=== PATIENT | female | born 1945 | race Caucasian/White ===

== ENCOUNTER 2023-10-22 07:57 | Day surgery (SDC) | payer OTHER ==
[2023-10-16 16:09] LABS: Absolute Basophils 0.1 K/uL (0-0.5); Absolute Eosinophils 0.5 K/uL (0-0.5); Absolute Lymphocytes (CBC) 2.4 K/uL (0.7-4.9); Absolute Monocytes 0.8 K/uL (0.1-1.3); Absolute Neutrophil 6.2 K/uL (1.8-8.0); Basophils % 1.2 % (0-1.3); Eosinophils % 5.4 % (0-4.4); Hematocrit 40.9 % (36.0-45.0); Hemoglobin 13.6 g/dL (12.0-15.0); Lymphocytes % 23.6 % (15.3-44.8); MCH 28.1 pg (27.0-35.0); MCHC 33.3 g/dL (32.0-36.0); MCV 84.5 fL (80-100); MPV 9.1 fL (7.6-11.3); Neutrophils % 61.8 % (41.7-73.7); Nucleated Red Blood Cells % 0.1 % (0-0); Platelets 282 thou/uL (152-406); RBC Red Blood Cell Count 4.84 M/uL (3.86-4.86); Red Cell Distribution Width 17.1 % (12.1-15.2)
[2023-10-16 16:29] LABS: Anion Gap 8.6 mEq/L (5.0-15.0); Potassium 3.6 mEq/L (3.5-5.1)
[2023-10-22] MEDS: NA CHLORIDE 0.9% 1,000 ML ONE (08:30)
[2023-10-22] MEDS: SCOPOLAMINE HYDROBROMIDE PATCH TD ONE (08:38)
[2023-10-22] MEDS ORDERED: LIDOCAINE 2% MPF 5 ML VIAL ONE ×2 (09:00→10:21)
[2023-10-22] MEDS ORDERED: propofoL 200 MG/20 ML VIAL IV ONE ×3 (09:00→11:25)
[2023-10-22] MEDS ORDERED: FENTANYL CITR 100 MCG/2 ML ONE (10:21)
[2023-10-22] MEDS ORDERED: ONDANSETRON 4 MG/2 ML VIAL ONE (10:21)
[2023-10-22] MEDS ORDERED: MIDAZOLAM HCL 2 MG/2 ML INJ ONE (10:32)
[2023-10-22] MEDS: CEFAZOLIN SODIUM 1 GM/VIAL ONE (10:55)
[2023-10-22] MEDS: LIDOCAINE HCL/EPINEPHRINE 20 ML MDV ONE (10:57)
[2023-10-22] MEDS ORDERED: TRIAMCINOLONE 0.1% CREAM 15GM TOP PRN (12:12)
[2023-10-22] MEDS ORDERED: HYDROCODONE/APAP 5/325 MG TAB PO PRN (12:13)
[2023-10-22] MEDS ORDERED: MEPERIDINE HCL 25 MG/ML SYR IM PRN (12:13)
--- NOTE | 2023-10-22 12:15 | P.BOP ---
Preoperative diagnosis: labial adhesions, vulvodynia Postoperative diagnosis: same and perineocele Primary procedure: EUA, Lysis of labial adhesions, perineocele repair Estimated blood loss: 50 Specimen: none Findings: significant anterior wall and posterior wall distal prolapse, perineocele Anesthesia: MAC Complications: None Transferred to: Recovery Room Condition: Good
[2023-10-22 15:37] VITALS: BP 128/54; TEMP 97.3; O2SAT 97
[2023-10-22] MEDS ORDERED: METFORMIN HCL 500 MG TAB PO SCH (17:00)
--- NOTE | 2023-10-22 17:11 | EKG ---
Test Date: 2023-10-16 Test Time: 14:38:56 [employer] Installer: DESIREE MEASUREMENT RESULTS: Intervals: Rate: 62 AR: 178 QRSD: 92 QT: 408 QTc: 414 [place]: P: 73 AR: 178 QRS: 15 T: 51 INTERPRETIVE STATEMENTS: Normal sinus rhythm with sinus arrhythmia Low voltage QRS Cannot rule out Anterior infarct, age undetermined Abnormal ECG Compared to ECG 02/21/1994 07:36:00 Low QRS voltage now present Myocardial infarct finding now present Sinus bradycardia no longer present Electronically Signed On 10-22-23 16:49:31 CDT by Jose Gomez
[2023-10-23] MEDS ORDERED: HCTHIAZID PO SCH (09:00)
[2023-10-23] MEDS ORDERED: HOME MED 1 EA UNK (Cholecalciferol (Vitamin D3) [Vitamin D3] 2000 UNIT Capsule) PO SCH (09:00)
[2023-10-23] MEDS ORDERED: HOME MED 1 EA UNK (Estradiol [Estradiol] 42.5 GM Cream.Appl) VG SCH (09:00)
[2023-10-23] MEDS ORDERED: ZINC GLUCONATE 50 MG TAB PO SCH (09:00)
[2023-10-23] MEDS ORDERED: HOME MED 1 EA UNK (Omeprazole [Prilosec] 40 MG Capsule.Dr) PO SCH (09:00)
[2023-10-23] MEDS ORDERED: allopurinoL 300 MG TAB PO SCH (09:00)
[2023-10-23] MEDS ORDERED: METOPROLOL XL 50 MG TAB PO SCH (09:00)
[2023-10-23] MEDS ORDERED: AMLODIPIN PO SCH (09:00)
[2023-10-23] MEDS ORDERED: OLMESARTAN PO SCH (09:00)
[2023-10-23] MEDS ORDERED: HOME MED 1 EA UNK (Ascorbic Acid [Vitamin C] 1,000 MG Tablet) PO SCH (09:00)
[2023-10-24] MEDS ORDERED: ASPIRIN EC 81 MG TAB PO SCH (09:00)
== END 2023-10-22 13:02 | disposition home or self-care (01) ==
LOC: OR 07:57
PROVIDERS: ADMIT Obstetrics & Gynecology; ATTEND Obstetrics & Gynecology
PROC: 0UNMXZZ Release Vulva, External Approach (ICD-10-PCS; principal; 2023-10-22 10:00)
PROC: 0KQM0ZZ Repair Perineum Muscle, Open Approach (ICD-10-PCS; 2023-10-22 10:00)
DX: N90.89 Other specified noninflammatory disorders of vulva and perineum (principal); N94.819 Vulvodynia, unspecified; N81.81 Perineocele; Q52.5 Fusion of labia; N81.4 Uterovaginal prolapse, unspecified
CPT/HCPCS: 56810; 56441; 93005; 85025; 80048; 36415; 82947; J2704 ×2; J2001; J2250; J3010; J2405; J7030; J0690